=== PATIENT | female | born 1980 | race Caucasian/White ===

== ENCOUNTER 2018-08-04 13:51 | Outpatient (REF) | payer OTHER, SELFPAY ==
--- NOTE | 2018-08-04 13:30 | PAPFT_PTH ---
PATIENT: Marybel Velazquez LOC: [facility] U#:[id number] AGE/SX: 37/F ROOM: RE08/04/[address]: MYA Holbrook : 1980 BED: DIS: 08/04/2018 SPEC #: [id number] RECD: 08/04/18 18:15 STATUS: RINA REQ #: [id number] MARSHA: 08/04/18 13:[address]: Rosenda Gilmore DEPT: [facility] Cytology RECD BY: Cintia Paz ENTERED: 08/04/18 18:16 SP TYPE: PAPFT OTHR DR: Sam Renee Tissues: 1 - CX/ENDOCX FOR PAP SMEARS Procedures: PAP THIN PREP/UVM Screening HPV DNA PROBE Comments: [id number]
[2018-08-05 13:25] LABS: Chlamydia Result Negative; GC Result Negative; Specimen Description CERVIX
== END 2018-08-04 14:11 ==
LOC: LBN 13:51
PROVIDERS: PCP Internal Medicine; Visit Provider Nurse Practitioner Family
DX: Z11.3 Encounter for screening for infections with a predominantly sexual mode of transmission (principal); Z12.4 Encounter for screening for malignant neoplasm of cervix; Z11.51 Encounter for screening for human papillomavirus (HPV)
CPT/HCPCS: 87491; 87591; 88142; 87624

== ENCOUNTER 2019-07-27 12:58 | Outpatient (REF) | payer OTHER, SELFPAY ==
[2019-07-27 22:15] LABS: Anion Gap 7.1 mmol/L (3-11); CO2 28.9 mmol/L (21.0-32.0); Chloride 105 mmol/L (98-107); Potassium 4.2 mmol/L (3.5-5.1); Sodium 141 mmol/L (136-145)
[2019-07-27 22:47] LABS: ALT 18 U/L (14-59); AST 18 U/L (15-37); Albumin 3.6 g/dL (3.4-5.0); Alkaline Phosphatase 73 U/L (46-116); BUN 7 mg/dL (7-18); Bilirubin, Total 0.4 mg/dL (0.2-1.0); CREATININE 0.69 mg/dL (0.55-1.02); Calcium 8.9 mg/dL (8.5-10.1); Glucose 81 mg/dL (74-106); Total Protein 6.8 g/dL (6.4-8.2)
[2019-07-28 17:23] LABS: CRP, High Sensitivity 7.77 mg/L (See Note)
[2019-07-29 15:25] LABS: ANA Interpretation Negative (Negative)
== END 2019-07-27 13:18 ==
LOC: NCHCN 12:58
PROVIDERS: PCP Nurse Practitioner Family; Visit Provider Nurse Practitioner Family
DX: R22.9 Localized swelling, mass and lump, unspecified (principal); M79.89 Other specified soft tissue disorders; M25.579 Pain in unspecified ankle and joints of unspecified foot
CPT/HCPCS: 80053; 86141; 85025; 86038

== ENCOUNTER 2024-08-10 11:03 | Outpatient (REF) | payer OTHER, SELFPAY ==
--- NOTE | 2024-08-10 10:40 | PAPFT_PTH ---
PATIENT: Marybel Velazquez LOC: [facility] U#:[id number] AGE/SX: 43/F ROOM: RE08/10/[address]: Naheed Aceves DO : 1980 BED: DIS: 08/10/2024 SPEC #: [id number] RECD: 08/10/24 13:21 STATUS: RINA REQ #: [id number] MARSHA: 08/10/24 10:[address]: Naheed Aceves DEPT: [facility] Cytology RECD BY: Cintia Paz ENTERED: 08/10/24 13:21 SP TYPE: PAPFT OTHR DR: Penelope Chung Tissues: 1 - CX/ENDOCX FOR PAP SMEARS Procedures: PAP THIN PREP/UVM Screening HPV DNA PROBE Comments: [id number] (HPV 16 & 18/45)
== END 2024-08-10 11:04 | disposition home or self-care (01) ==
LOC: LBN 11:03
PROVIDERS: PCP Nurse Practitioner Family; Visit Provider Obstetrics & Gynecology
DX: N81.2 Incomplete uterovaginal prolapse; Z01.419 Encounter for gynecological examination (general) (routine) without abnormal findings; Z30.431 Encounter for routine checking of intrauterine contraceptive device; Z12.4 Encounter for screening for malignant neoplasm of cervix
CPT/HCPCS: 88142; 87624

== ENCOUNTER 2024-08-31 01:15 | Outpatient (CLI) | payer OTHER, SELFPAY ==
--- NOTE | 2024-08-31 | DI.US_ITS ---
Exam(s) US BREAST LT COMPLETE US BREAST RT COMPLETE MG MAMMO DIAGNOSTIC BI EXAM: MG MAMMO DIAGNOSTIC BI AND BILATERAL COMPLETE BREAST ULTRASOUND CLINICAL HISTORY: right breast mass,n63.10... TECHNIQUE: BILATERAL CC AND MLO mammographic images were obtained with 3D tomosynthesis technique an d utilizing computer aided detection (CAD). ALSO performed bilateral spot compression 3D views Also COMPLETE BILATERAL BREAST ULTRASOUND including all 4 quadrants of both breasts as well as both a xillary regions. COMPARISON: Prior mammogram of 2016 was reviewed. There are no interval mammograms since that time. Apparently the patient was investigated for right breast finding at that time FINDINGS: DIAGNOSTIC BILATERAL MAMMOGRAM: In the upper-outer quadrant of the right breast there is a prominent well-defined 5 x 2.7 cm relative ly well-circumscribed mass now evident. This does not exhibit spiculation nor internal microcalcific ations. No associated architectural distortion nor skin thickening-retraction. Remainder of the rig ht breast appears unremarkable. In the left breast in the upper outer quadrant there is S subtle slightly lobulated nodular density m easuring approximately 1.7 x 1.2 cm located approximately 6 cm in from the nipple, not exhibiting spi culations nor internal microcalcifications. There is no associated architectural distortion or skin thickening-retraction. BILATERAL COMPLETE BREAST ULTRASOUND: RIGHT BREAST ULTRASOUND: In the upper outer quadrant at the 10 o'clock position there is a slightly lobulated non-cystic mass measuring approximately 4.5 x 2.2 cm, this corresponding to the finding on the mammogram. Exhibits n eutral through transmission. There are no other focal ultrasound findings in all 4 quadrants of the right breast and no significan t adenopathy in the right axilla. LEFT BREAST ULTRASOUND: There is a solitary subtle solid appearing finding in the upper outer quadrant 2 o'clock position whi ch most probably corresponds to the finding on the mammogram, measuring approximately 1.2 x 0.7 cm. Slightly lobulated. Exhibits slightly decreased through transmission. This most probably correspond s to the finding on the mammogram. There are no other focal ultrasound findings in all 4 quadrants of the left breast. Scanning of the left axilla is negative for significant adenopathy. IMPRESSION: 1. There is a non cystic mass in the upper-outer quadrant 10 o'clock position of the right breast whi ch measures approximately 4.5 x 2.2 cm on ultrasound. Has the appearance of possible pseudo angiomat ous stromal hyperplasia. Other possibilities are fibroadenoma lipoma or growing fibroadenoma. Less likely patency. Ultrasound-guided core biopsy is recommended. 2. There is a subtle solid nodule in the upper-outer quadrant of the left breast (2 o'clock position ) which measures approximately 12 x 7 mm and most probably corresponds to the finding on the mammogra m. This should also undergo ultrasound-guided core biopsy The patient was informed of the findings and follow-up recommendations by myself prior to leaving the department today. Results and recommendations were called by myself to referring physician [facility] 08/31/2024 9:50 a.m. BI-RADS Category 4 - Suspicious Abnormality: Biopsy should be considered Breast Density - Category C - Heterogeneously dense Breast density Category C or D implies that the patient has dense breast tissue. Dense breast tissue can make it harder to find cancer on a mammogram. Dense breast tissue is also associated with an incr eased risk of breast cancer. This information about the result of the mammogram report was provided to the patient to raise their awareness. Use this report when you speak with the patient about their risks for breast cancer, which includes their family history. At that time, you may recommend additional screening tests (Ultrasoun d or MRI) as these tests may add significant information. A negative radiographic report should not delay biopsy if a dominant or clinically suspicious mass is present. Up to ten percent of cancers are not identified on mammography. A negative report may reinforce clinical impression. Adenosis and dense breasts may obscure an underlying neoplasm. False positive reports average 6 to 10%. Patient will receive a letter notifying them of these results.
== END 2024-08-31 01:35 ==
PROVIDERS: PCP Nurse Practitioner Family; Visit Provider Obstetrics & Gynecology
DX: N63.11 Unspecified lump in the right breast, upper outer quadrant; Z12.31 Encounter for screening mammogram for malignant neoplasm of breast; N63.21 Unspecified lump in the left breast, upper outer quadrant
CPT/HCPCS: 76642; 77062; 77066; G0279

== ENCOUNTER 2024-09-18 00:08 | Outpatient (CLI) | payer OTHER, SELFPAY ==
--- NOTE | 2024-09-18 | DI.US_ITS ---
Exam(s) US NEEDLE LOCAL BREAST WO RAD EXAM: US NEEDLE LOCAL BREAST WO RAD CLINICAL HISTORY: Bilateral breast masses,ULTRASOUND GUIDED BIOPSIES. Right Breast. Left Breast. TECHNIQUE: Ultrasound was provided for Dr. Shaw for guidance with performing bilateral breast biops ies. COMPARISON: MG MG MAMMO DIAGNOSTIC BI from 08/31/2024 US US BREAST RT COMPLETE from 08/31/2024 FINDINGS: Please see procedure note for details. IMPRESSION: Successful bilateral ultrasound-guided Breast Biopsy.
--- NOTE | 2024-09-18 10:45 | BREAST_PTH ---
PATIENT: Marybel Velazquez LOC: [facility] U#:[id number] AGE/SX: 44/F ROOM: RE09/18/[address]: Gabriel Shaw MD : 1980 BED: DIS: 09/18/2024 SPEC #: [id number] RECD: 09/18/24 12:46 STATUS: RINA REQ #: [id number] MARSHA: 09/18/24 10:[address]: Gabriel Shaw DEPT: Surgical Specimen RECD BY: Cintia Paz ENTERED: 09/18/24 12:47 SP TYPE: Breast OTHR DR: Penelope Chung Tissues: 1 - BREAST BX NEEDLE 2 - BREAST BX NEEDLE Procedures: GROSS AND MICRO LEVEL 4 Comments: [id number]
--- NOTE | 2024-09-18 10:56 | OPPNE_ITS ---
Date of service: 09/18/24 Time of Service: 10:56 Procedure Note Date of procedure: 09/18/24 Procedure: Core needle biopsy of right breast abnormality; core needle biopsy of left Surgeon/Proceduralist/Physician: Gabriel Shaw Procedure Diagnosis: Right breast abnormality on mammogram and ultrasound; left breast abnormali Procedure Indications: Ayaan has abnormalities in both the right and left breast on mammogram and ultrasound. Biopsy is recommended based on imaging characteristics. Procedure Description: I met with Marybel before the procedure, and reviewed the plan for bilateral ultrasound-guided core needle biopsies. I explained the risks and the benefits of the procedure, Marybel was able to provide informed consent. Next, we started with the right breast. With real-time ultrasound guidance, we identified the lesion, which appeared congruent with her previous imaging located in the upper outer quadrant. I then prepped the skin adjacent to the ultrasound probe, and anesthetized the skin and trajectory of the planned biopsy. I then made a small skin incision, and introduced a 22 mm Bard core needle biopsy device. Again, with the assistance of real-time ultrasound guidance, I advanced up to the periphery of the lesion. I then obtained four core needle biopsy specimens as corporate representative of the lesion. Specimen quality appeared excellent. Gentle pressure was held over the biopsy sites, and then a radiopaque marker was placed in the area of the biopsies. A Band-Aid was then placed over the access point. Specimens were then placed in formalin for preservation. I then broke down the table, and set up another biopsy kit. We then turned our attention to the left breast. Marybel was assisted slightly to the right side to help with visualization. This lesion was in the upper outer quadrant of the left breast. Again, this lesion appeared congruent with the ultrasound previously performed on the left side. The adjacent skin was prepped and local anesthesia was established using a similar technique to the right side. A small skin incision was made, and the 22 mm Bard core needle biopsy device it was passed up to the periphery of the lesion. 2 specimens were obtained since this lesion was a bit smaller. Quality of the specimens appeared excellent. Again, a radiopaque marker was placed in the area. Gentle pressure was held over this biopsy area as well, and similar to the right side, a Band-Aid was used to dress the incision site. Wound care instructions were explained to Marybel, and I will follow-up with her once the biopsy results are available.
== END 2024-09-18 00:28 ==
PROVIDERS: PCP Nurse Practitioner Family; Visit Provider Surgery
DX: N60.81 Other benign mammary dysplasias of right breast (principal)
CPT/HCPCS: 19083; 19084; 76942; 88305

== ENCOUNTER → 2025-05-25 01:33 | Outpatient (CLI) | payer OTHER, SELFPAY ==
--- NOTE | 2025-05-25 | DI.US_ITS ---
Exam(s) US BREAST LT COMPLETE US BREAST RT COMPLETE MG MAMMO DIAGNOSTIC BI EXAM: MG MAMMO DIAGNOSTIC BI and U/S breast bilateral complete CLINICAL HISTORY: MASS LT AND RT BREAST, N63.20, N63.10. TECHNIQUE: Craniocaudal and mediolateral oblique Full Field Digital Mammography views with Computer Aided Diagnosis followed by Tomosynthesis and complete bilateral breast ultrasound. All 4 quadrants were evaluated sonographically in addition to the axilla and retroareolar regions. COMPARISON: Comparison is made with prior examinations. FINDINGS: Mammography/Tomosynthesis: Masses/Architectural Distortion: There are again seen bilateral masses in the upper outer quadrants of each breast. Biopsy clips are seen within each mass. The right breast mass has shown decrease in size measuring 4.7 cm on the current examination compared to 5.5 on the prior examination. There are no new breast masses. There are no suspicious areas of architectural distortion. Microcalcifictions: No suspicious pleomorphic-type are seen. Skin Thickening/Nipple Retraction: None. Bilateral complete breast US: Echotexture: Normal appearance of the glandular tissue. Shadowing: No suspicious foci. Cyst: No suspicious cysts are seen. Solid lesions: The hypoechoic mass at the 2 o'clock position of the left breast is unchanged. This has previously been biopsied. The mass in the upper outer quadrant of the right breast likewise shows no significant change in appearance. This also has been biopsy. There are no new solid breast masses. Ductal dilation: None. IMPRESSION: 1. No evidence of malignancy is noted. 2. Unless there is more urgent need, follow-up screening mammography is recommended, as per [employer] guidelines. 3. The findings were discussed with the patient on the date of the examination. BI-RADS Category 2 - Benign Findings Breast Density - Category C - The breast are heterogeneously dense, which may obscure small masses. Breast density Category C or D implies that the patient has dense breast tissue. Dense breast tissue can make it harder to find cancer on a mammogram. Dense breast tissue is also associated with an increased risk of breast cancer. This information about the result of the mammogram report was provided to the patient to raise their awareness. Use this report when you speak with the patient about their risks for breast cancer, which includes their family history. At that time, you may recommend additional screening tests (Ultrasound or MRI) as these tests may add significant information. A negative radiographic report should not delay biopsy if a dominant or clinically suspicious mass is present. Up to ten percent of cancers are not identified on mammography. A negative report may reinforce clinical impression. Adenosis and dense breasts may obscure an underlying neoplasm. False positive reports average 6 to 10%. Patient will receive a letter notifying them of these results.
== END ==
LOC: DI 01:33
PROVIDERS: PCP Nurse Practitioner Family; Visit Provider Surgery
DX: N63.11 Unspecified lump in the right breast, upper outer quadrant; N63.21 Unspecified lump in the left breast, upper outer quadrant
CPT/HCPCS: 76642; 77062; 77066; G0279